=== PATIENT | female | born 1975 ===

== ENCOUNTER 2018-09-11 22:12 | Emergency (ER) | payer SELFPAY ==
[2018-09-11 22:39] VITALS: TEMP 97.9
[2018-09-12] MEDS ORDERED: Sodium Chloride 0.9% 1,000 ML IV STA (00:01)
--- NOTE | 2018-09-12 00:12 | ED PDOC ---
HPI: CCC, URI, Sore Throat Time Seen by Provider: 09/11/18 23:34 Chief Complaint (Nursing): ENT Problem Chief Complaint (Provider): ENT Problem History Per: Patient History/Exam Limitations: no limitations Onset/Duration Of Symptoms: Days Current Symptoms Are (Timing): Still Present Location Of Pain: Ear(s), Throat Additional Complaint(s): 43 y/o female with a PMHx of DM presents to the ED for evaluation of left ear pain, onset four days ago. Patient reports ear pain is associated with throat pain, dry cough, nasal congestion and tactile fever since onset. Patient notes of having shaking to her hands but believes it could be due to her fever or low blood sugar. Patient states she did not check her glucose level or her temperature because she does not have an accucheck machine nor a thermometer at home. Patient additionally denies receiving this year's flu vaccination. PMD: [facility] Past Medical History Reviewed: Historical Data, Nursing Documentation, Vital Signs Vital Signs: Last Vital Signs Temp 97.9 F 09/11/18 22:36 Pulse 102 H 09/11/18 22:36 Resp 16 09/11/18 22:36 BP 143/86 09/11/18 22:36 Pulse Ox 99 09/11/18 22:36 Primary Care Provider: [place] - Medical History PMH: Diabetes - Surgical History Surgical History: Other surgeries: tubal ligation - Family History Family History: States: Unknown Family Hx - Allergies Allergies/Adverse Reactions: Allergies Allergy/AdvReac Type Severity Reaction Status Date / Time PORK Allergy URTICARIA Verified 09/12/18 00:21 Review of Systems ROS Statement: Except As Marked, All Systems Reviewed And Found Negative ENT: Positive for: Ear Pain, Nose Congestion, Throat Pain Respiratory: Positive for: Cough, Shortness of Breath Physical Exam - Reviewed Nursing Documentation Reviewed: Yes Vital Signs Reviewed: Yes - Physical Exam Appears: Positive for: No Acute Distress Head Exam: Positive for: ATRAUMATIC, NORMOCEPHALIC Skin: Positive for: Normal Color, Warm, Dry Eye Exam: Positive for: Normal appearance, EOMI, PERRL ENT: Positive for: Normal ENT Inspection Neck: Positive for: Normal, Painless ROM, Supple Cardiovascular/Chest: Positive for: Regular Rate, Rhythm. Negative for: Murmur Respiratory: Positive for: Normal Breath Sounds. Negative for: Respiratory Distress Gastrointestinal/Abdominal: Positive for: Normal Exam, Soft. Negative for: Tenderness Extremity: Positive for: Normal ROM. Negative for: Pedal Edema, Deformity Neurological/Psych: Positive for: Awake, Alert, Oriented (x3). Negative for: Motor/Sensory Deficits - Laboratory Results Result Diagrams: 09/12/18 00:15 09/12/18 00:15 - ECG O2 Sat by Pulse Oximetry: 99 (RA) Pulse Ox Interpretation: Normal - Progress Re-evaluation Time: 02:33 Condition: Re-examined, Improved Medical Decision Making Medical Decision Making: Time: 2018 Impression: Ear Pain Rule out Flu and Strep Plan: -- Glucose Level elevated at 418. Additional labs ordered. -- BMP -- CBC with Differentials -- Glucose, POC -- Motrin 400 mg PO -- Sodium Chloride 0.9% IV 1000 mls/hr -- Accucheck -- Influenza A B -- Rapid Strep Group A Antigen Scribe Attestation: Documented by Remigio Marshall, acting as a scribe Yen Florence MD. Provider Scribe Attestation: All medical record entries made by the Scribe were at my direction and personally dictated by me. I have reviewed the chart and agree that the record accurately reflects my personal performance of the history, physical exam, medical decision making, and the department course for this patient. I have also personally directed, reviewed, and agree with the discharge instructions and disposition. Disposition - Clinical Impression Clinical Impression: URI (upper respiratory infection), Hyperglycemia, Ear, nose, and throat symptom - Patient ED Disposition Is Patient to be Admitted: No Doctor Will See Patient In The: Office Counseled Patient/Family Regarding: Studies Performed, Diagnosis, Need For Followup - Disposition Referrals: [facility] [Outside] Disposition: Routine/Home Disposition Time: 02:34 Condition: GOOD Additional Instructions: CHINMAY AUGUSTE, thank you for letting us take care of you today. Your provider was Everardo Florence MD and you were treated for EAR PAIN, THROAT PAIN. The emergency medical care you received today was directed at your acute symptoms. If you were prescribed any medication, please fill it and take as d irected. It may take several days for your symptoms to resolve. Return to the Emergency Department if your symptoms worsen, do not improve, or if you have any other problems. Please contact your doctor or call one of the physicians/clinics you have been referred to that are listed on the Patient Visit Information form that is included in your discharge packet. Bring any paperwork you were given at discharge with you along with any medications you are taking to your follow up visit. Our treatment cannot replace ongoing medical care by a primary care provider outside of the emergency department. Thank you for allowing the [facility] team to be part of your care today. Instructions: Hyperglycemia, Adult, Blood Glucose Monitoring, Viral Pharyngitis (DC)
[2018-09-12 00:26] LABS: BASO # 0.1 K/uL (0.0-0.2); EOS # 0.1 K/uL (0.0-0.7); EOS % 2.1 % (0.0-4.0); HEMOGLOBIN 11.9 g/dL (12.0-16.0); LYMPH # 2.4 K/uL (1.0-4.3); LYMPH % 38.6 % (20.0-40.0); MEAN CELL VOLUME 91.1 fl (81.0-99.0); MEAN CORPUSCULAR HEMOGLOBIN 29.8 pg (27.0-31.0); MEAN CORPUSCULAR HGB CONC 32.7 g/dL (33.0-37.0); MEAN PLATELET VOLUME 8.4 fl (7.2-11.7); MONO # 0.6 K/uL (0.0-0.8); MONO % 9.6 % (0.0-10.0); NEUT # 3.1 K/uL (1.8-7.0); NEUT % 48.7 % (50.0-75.0); RBC 4.01 Mil/uL (3.80-5.20); RED CELL DISTRIBUTION WIDTH 13.8 % (11.5-14.5); WHITE BLOOD COUNT 6.3 K/uL (4.8-10.8)
[2018-09-12 00:34] LABS: BLOOD UREA NITROGEN 19 mg/dl (7-17); CALCIUM 9.5 mg/dL (8.4-10.2); GFR NON-AFRICAN AMERICAN > 60
[2018-09-12] MEDS ORDERED: Insulin Regular 100 units/ml IV STA (00:58)
[2018-09-12] MEDS ORDERED: Insulin Regular 100 units/ml ONE (01:28)
[2018-09-12 02:50] VITALS: BP 102/57; PULSE 88; RESP 17; O2SAT 98
== END 2018-09-12 03:07 | disposition home or self-care (01) ==
LOC: H.ER 22:12
DX: J06.9 Acute upper respiratory infection, unspecified (principal); E11.65 Type 2 diabetes mellitus with hyperglycemia
CPT/HCPCS: 80048; 81025; 82948; 85025; 87070; 87430; 87804; 96360; 99282; J7030